=== PATIENT | male | born 1975 | race Caucasian/White ===

== ENCOUNTER 2022-06-14 17:01 | Emergency (ER) | payer BC, OTHER ==
[~2022-06-14] VITALS: Ht 185.4 cm; Wt 100.3 kg
[2022-06-14 18:42] VITALS: BP 109/77
[2022-06-14] MEDS ORDERED: IBUP800T27 PO (19:29)
[2022-06-14] MEDS ORDERED: CEPH-510 PO (19:29)
[2022-06-14] MEDS ORDERED: LIDOCAINE 1% HCL (LOCAL ANESTH.) INJ 20ML MDV ID ONE (19:30)
== END 2022-06-14 20:37 | disposition home or self-care (01) ==
LOC: ER 17:01
DX: S61.511A Laceration without foreign body of right wrist, initial encounter (principal); S61.412A Laceration without foreign body of left hand, initial encounter; Z79.1 Long term (current) use of non-steroidal anti-inflammatories (NSAID); Z79.899 Other long term (current) drug therapy; W26.8XXA Contact with other sharp object(s), not elsewhere classified, initial encounter; Y93.89 Activity, other specified; Y92.89 Other specified places as the place of occurrence of the external cause; Y99.8 Other external cause status
CPT/HCPCS: 12002; 73110; 73130; 99284; J2001